=== PATIENT | male | born 1935 | race African-American/Black ===

== ENCOUNTER 2019-05-21 13:22 | Inpatient (IN) | payer OTHER, MEDICARE ==
[~2019-05-21] VITALS: Ht 175.3 cm; Wt 56.7 kg
[2019-05-21] MEDS ORDERED: ONDANSETRON HCL 4MG/2ML INJ IV STA (13:54)
[2019-05-21] MEDS ORDERED: FAMOTIDINE 20MG/2ML VIAL IV STA (13:54)
[2019-05-21] MEDS ORDERED: MAGNESIUM/ALUMINUM HYDROXIDE/SIMETHICONE 30ML UDC PO STA (13:54)
[2019-05-21 14:14] LABS: BASOPHILS % 0.1 % (0.0-2.0); HEMATOCRIT. 28.8 % (42.0-52.0); LYMPHOCYTES % 8.3 % (20.0-50.0); MEAN CORPUSCULAR HEMOGLOBIN 31.2 pg (28.0-32.0); MEAN CORPUSCULAR VOLUME 89.5 fL (80.0-94.0); MEAN PLATELET VOLUME 7.7 fl (7.4-10.4); MONOCYTES % 4.8 % (2.0-8.0); NEUTROPHILS % 86.8 % (40.0-76.0); PLATELET 321 x1000/uL (130-400); RED BLOOD CELL COUNT 3.21 mill/uL (4.7-6.1)
[2019-05-21 14:16] LABS: CHLORIDE 103 mEq/L (98-107)
[2019-05-21] MEDS ORDERED: KETOROLAC 15MG/ML VIAL IV ONE (15:30)
[2019-05-21] MEDS ORDERED: ACETAMINOPHEN 325MG TABLET PO ONE (15:30)
[2019-05-21] MEDS ORDERED: IOHEXOL-300 100 ML BOTTLE ONE (16:05)
[2019-05-21] MEDS ORDERED: CEFTRIAXONE 1 G PREMIX 50 ML IV ONE (17:30)
[2019-05-21] MEDS ORDERED: MORPHINE SULFATE 2 MG/ML CPJ (NOT FOR IM USE) IV ONE (17:30)
[2019-05-21] MEDS ORDERED: METRONIDAZOLE 500 MG PREMIX 100 ML IV ONE (17:30)
[2019-05-21 20:00] VITALS: BP_SYST 117; BP_SYST 149; BP_DIAS 53; BP_DIAS 60
[2019-05-21 20:23] LABS: CLARITY URINE CLEAR (CLEAR); COLOR URINE YELLOW (YELLOW); KETONES URINE NEGATIVE (NEGATIVE); LEUKOCYTE ESTERASE URINE TRACE (NEGATIVE); NITRITE URINE NEGATIVE (NEGATIVE); OCCULT BLOOD URINE 2+ (NEGATIVE); PROTEIN URINE 2+ (NEGATIVE); SPECIFIC GRAVITY URINE 1.064 (1.005-1.030); UROBILINOGEN URINE 0.2 E.U./dL (0.2-1.0)
[2019-05-21] MEDS ORDERED: ONDANSETRON HCL 4MG/2ML INJ IV PRN (23:00)
[2019-05-21] MEDS ORDERED: HYDROMORPHONE HCL/PF 2MG/ML CPJ IM PRN (23:15)
[2019-05-21] MEDS: DEXT 5%/0.45% NACL 1000ML 1,000 ML IV SCH (23:59)
[2019-05-22] VITALS: BP 160/63
[2019-05-22] MEDS ORDERED: PIPERACILLIN/TAZOBACTAM 3.375 G/VIAL IV SCH
[2019-05-22] MEDS: PIPERACILLIN/TAZOBACTAM 3.375 G in DEXT 5% WATER 100 ML IV SCH ×4 (00:05→17:03)
[2019-05-22] MEDS ORDERED: DEXTROSE 50% WATER 50ML SYRINGE IV PRN (01:15)
[2019-05-22 04:00] VITALS: BP 162/79
[2019-05-22 06:06] LABS: CHLORIDE 103 mEq/L (98-107)
[2019-05-22 06:17] LABS: BASOPHILS % 0.1 % (0.0-2.0); HEMATOCRIT. 30.6 % (42.0-52.0); HEMOGLOBIN. 10.5 g/dL (14.0-18.0); LYMPHOCYTES % 8.2 % (20.0-50.0); MEAN CORPUSCULAR HEMOGLOBIN 30.7 pg (28.0-32.0); MEAN CORPUSCULAR VOLUME 89.5 fL (80.0-94.0); MEAN PLATELET VOLUME 7.2 fl (7.4-10.4); MONOCYTES % 7.9 % (2.0-8.0); NEUTROPHILS % 83.8 % (40.0-76.0); PLATELET 272 x1000/uL (130-400); RED BLOOD CELL COUNT 3.41 mill/uL (4.7-6.1); RED CELL DISTRIBUTION WIDTH 13.8 % (11.6-14.6)
[2019-05-22] MEDS: BLOOD SUGAR DIAGNOSTIC STRIP TEST SCH ×4 (06:31→21:29)
[2019-05-22] MEDS: INSULIN LISPRO 100 UNITS/ML SUBCUT SCH ×3 (07:50→21:00)
[2019-05-22 08:00] VITALS: BP 147/65
[2019-05-22] MEDS: DEXT 5%/0.45% NACL 1000ML 1,000 ML IV SCH (08:56)
[2019-05-22] MEDS: HEPARIN 5000 UNITS/ML VIAL SUBCUT SCH ×2 (08:56→21:13)
[2019-05-22] MEDS ORDERED: FAMOTIDINE 20MG/2ML VIAL IV SCH (09:00)
[2019-05-22] MEDS: FAMOTIDINE 20MG/2ML VIAL IV SCH (09:25)
[2019-05-22 12:00] VITALS: BP 146/62
[2019-05-22] MEDS: HYDROMORPHONE HCL/PF 2MG/ML CPJ IV PRN (14:11)
[2019-05-22] MEDS: SODIUM CHLORIDE 0.9% 1,000 ML IV SCH (14:30)
[2019-05-22 16:00] VITALS: BP 122/58
[2019-05-22] MEDS: METRONIDAZOLE 500 MG PREMIX 100 ML IV SCH (16:00)
[2019-05-22 20:00] VITALS: BP 109/51
[2019-05-23] VITALS: BP 142/62
[2019-05-23] MEDS: METRONIDAZOLE 500 MG PREMIX 100 ML IV SCH ×3 (01:05→15:38)
[2019-05-23] MEDS: PIPERACILLIN/TAZOBACTAM 3.375 G in DEXT 5% WATER 100 ML IV SCH ×4 (01:05→17:43)
[2019-05-23] MEDS: SODIUM CHLORIDE 0.9% 1,000 ML IV SCH ×2 (01:05→11:03)
[2019-05-23] MEDS: HYDROMORPHONE HCL/PF 2MG/ML CPJ IV PRN ×2 (02:47→08:18)
[2019-05-23 04:00] VITALS: BP 124/64
[2019-05-23 06:57] LABS: CHLORIDE 105 mEq/L (98-107)
[2019-05-23 07:05] LABS: PHOSPHORUS 2.6 mg/dL (2.5-4.9)
[2019-05-23 07:13] LABS: BASOPHILS % 0.1 % (0.0-2.0); EOSINOPHILS % 0.1 % (0.0-5.0); HEMATOCRIT. 31.2 % (42.0-52.0); HEMOGLOBIN. 10.8 g/dL (14.0-18.0); LYMPHOCYTES % 24.7 % (20.0-50.0); MEAN CORPUSCULAR HEMOGLOBIN 31.1 pg (28.0-32.0); MEAN CORPUSCULAR VOLUME 90.1 fL (80.0-94.0); MEAN PLATELET VOLUME 7.3 fl (7.4-10.4); MONOCYTES % 6.3 % (2.0-8.0); NEUTROPHILS % 68.8 % (40.0-76.0); PLATELET 250 x1000/uL (130-400); RED BLOOD CELL COUNT 3.46 mill/uL (4.7-6.1); RED CELL DISTRIBUTION WIDTH 13.6 % (11.6-14.6)
[2019-05-23] MEDS: BLOOD SUGAR DIAGNOSTIC STRIP TEST SCH ×4 (07:26→21:07)
[2019-05-23] MEDS: INSULIN LISPRO 100 UNITS/ML SUBCUT SCH ×4 (07:50→21:00)
[2019-05-23 08:00] VITALS: BP 180/75
[2019-05-23] MEDS ORDERED: CLONIDINE 0.1MG TABLET PO PRN (08:00)
[2019-05-23] MEDS: HEPARIN 5000 UNITS/ML VIAL SUBCUT SCH ×2 (08:13→21:09)
[2019-05-23] MEDS: FAMOTIDINE 20MG/2ML VIAL IV SCH (08:13)
[2019-05-23 12:00] VITALS: BP 172/77
[2019-05-23 16:00] VITALS: BP 164/84
[2019-05-23 20:00] VITALS: BP 134/78
[2019-05-24] VITALS: BP 104/62
[2019-05-24] MEDS: METRONIDAZOLE 500 MG PREMIX 100 ML IV SCH ×4 (00:10→23:22)
[2019-05-24] MEDS: SODIUM CHLORIDE 0.9% 1,000 ML IV SCH ×3 (00:10→20:00)
[2019-05-24] MEDS: HYDROMORPHONE HCL/PF 2MG/ML CPJ IV PRN ×2 (00:48→09:03)
[2019-05-24] MEDS: PIPERACILLIN/TAZOBACTAM 3.375 G in DEXT 5% WATER 100 ML IV SCH ×4 (01:24→20:02)
[2019-05-24] MEDS: BLOOD SUGAR DIAGNOSTIC STRIP TEST SCH ×4 (06:02→21:33)
[2019-05-24] MEDS: INSULIN LISPRO 100 UNITS/ML SUBCUT SCH ×4 (06:07→21:44)
[2019-05-24 08:00] VITALS: BP 100/63
[2019-05-24] MEDS: HEPARIN 5000 UNITS/ML VIAL SUBCUT SCH ×2 (09:02→21:27)
[2019-05-24] MEDS: FAMOTIDINE 20MG/2ML VIAL IV SCH (09:02)
[2019-05-24 12:00] VITALS: BP 118/49
[2019-05-24 13:47] LABS: BASOPHILS % 0.2 % (0.0-2.0); EOSINOPHILS % 0.4 % (0.0-5.0); HEMATOCRIT. 29.2 % (42.0-52.0); HEMOGLOBIN. 9.8 g/dL (14.0-18.0); LYMPHOCYTES % 21.5 % (20.0-50.0); MEAN CORPUSCULAR HEMOGLOBIN 31.1 pg (28.0-32.0); MEAN CORPUSCULAR VOLUME 92.2 fL (80.0-94.0); MEAN PLATELET VOLUME 7.1 fl (7.4-10.4); MONOCYTES % 8.6 % (2.0-8.0); NEUTROPHILS % 69.3 % (40.0-76.0); PLATELET 252 x1000/uL (130-400); RED BLOOD CELL COUNT 3.17 mill/uL (4.7-6.1); RED CELL DISTRIBUTION WIDTH 14.1 % (11.6-14.6)
[2019-05-24 13:57] LABS: CHLORIDE 107 mEq/L (98-107)
[2019-05-24 16:30] VITALS: BP 138/74
[2019-05-24] MEDS ORDERED: ACETAMINOPHEN 650MG SUPP PR PRN (16:45)
[2019-05-24] MEDS ORDERED: POTASSIUM CHLORIDE INJ 40 MEQ in DEXT 5% WATER 500 ML IV NR (18:00)
[2019-05-24 18:07] LABS: BG BASE EXCESS -3.3 mmol/L (-2.0-2.0); BG CARBOXYHEMOGLOBIN 0.3 % (0.5-1.5); BG DEOXYHEMOGLOBIN 2.8 % (0.0-5.0); BG FRACTION INSPIRED OXYGEN 21; BG HCO3 ACT 20.5 mmol/L (22.0-26.0); BG METHEMOGLOBIN 0.7 % (0.0-1.5); BG OXYGEN SATURATION 97.2 % (92.0-98.5); BG OXYHEMOGLOBIN 96.2 % (94.0-97.0); BG PCO2 32.3 mmHg (35.0-45.0); BG PO2 94.8 mmHg (75.0-100.0); BG SAMPLE SITE RIGHT RADIAL; BG TOTAL HEMOGLOBIN 10.3 g/dL (12.0-18.0); BG VENT MODE ROOM AIR
[2019-05-24 20:00] VITALS: BP 143/70
[2019-05-24] MEDS: VANCOMYCIN HCL 1000 MG/20 ML ORAL PO SCH ×2 (21:25→23:26)
[2019-05-25] VITALS: BP 144/66
[2019-05-25] MEDS: PIPERACILLIN/TAZOBACTAM 3.375 G in DEXT 5% WATER 100 ML IV SCH ×2 (00:54→05:49)
[2019-05-25] MEDS: HYDROMORPHONE HCL/PF 2MG/ML CPJ IV PRN ×2 (03:21→15:18)
[2019-05-25 04:00] VITALS: BP 166/81
[2019-05-25] MEDS: VANCOMYCIN HCL 1000 MG/20 ML ORAL PO SCH ×2 (06:06→18:50)
[2019-05-25] MEDS: BLOOD SUGAR DIAGNOSTIC STRIP TEST SCH ×4 (07:48→21:00)
[2019-05-25] MEDS: INSULIN LISPRO 100 UNITS/ML SUBCUT SCH ×4 (07:50→22:21)
[2019-05-25 08:00] VITALS: BP 148/58
[2019-05-25] MEDS: HEPARIN 5000 UNITS/ML VIAL SUBCUT SCH (10:46)
[2019-05-25] MEDS: FAMOTIDINE 20MG/2ML VIAL IV SCH (10:46)
[2019-05-25] MEDS: METRONIDAZOLE 500 MG PREMIX 100 ML IV SCH (10:46)
[2019-05-25 12:00] VITALS: BP 139/59
[2019-05-25] MEDS ORDERED: FAMO-135 PO (12:47)
[2019-05-25] MEDS ORDERED: METR500T PO (12:47)
[2019-05-25] MEDS ORDERED: VANC125C11 MT (12:47)
[2019-05-25] MEDS: METRONIDAZOLE 500MG TABLET PO SCH ×2 (13:28→22:10)
[2019-05-25 15:49] LABS: BASOPHILS % 0.2 % (0.0-2.0); EOSINOPHILS % 0.6 % (0.0-5.0); HEMATOCRIT. 31.3 % (42.0-52.0); HEMOGLOBIN. 10.6 g/dL (14.0-18.0); LYMPHOCYTES % 24.7 % (20.0-50.0); MEAN CORPUSCULAR HEMOGLOBIN 30.8 pg (28.0-32.0); MEAN CORPUSCULAR VOLUME 91.1 fL (80.0-94.0); MEAN PLATELET VOLUME 6.8 fl (7.4-10.4); MONOCYTES % 9.3 % (2.0-8.0); NEUTROPHILS % 65.2 % (40.0-76.0); PLATELET 239 x1000/uL (130-400); RED BLOOD CELL COUNT 3.44 mill/uL (4.7-6.1); RED CELL DISTRIBUTION WIDTH 13.9 % (11.6-14.6)
[2019-05-25 15:58] LABS: CHLORIDE 109 mEq/L (98-107)
[2019-05-25 16:00] VITALS: BP 129/60
[2019-05-25] MEDS ORDERED: POTASSIUM CHLORIDE 20MEQ TABLET SR PO NR (19:30)
[2019-05-25 20:00] VITALS: BP 160/77
[2019-05-25] MEDS ORDERED: POTASSIUM CHLORIDE INJ 40 MEQ in DEXT 5% WATER 250 ML IV NR (21:00)
[2019-05-26] VITALS: BP 133/73
[2019-05-26] MEDS: VANCOMYCIN HCL 1000 MG/20 ML ORAL PO SCH ×5 (00:55→23:01)
[2019-05-26] MEDS: ACETAMINOPHEN 325MG TABLET PO PRN (02:53)
[2019-05-26 04:00] VITALS: BP 150/69
[2019-05-26] MEDS: METRONIDAZOLE 500MG TABLET PO SCH ×3 (05:59→22:27)
[2019-05-26] MEDS: BLOOD SUGAR DIAGNOSTIC STRIP TEST SCH ×4 (06:15→21:00)
[2019-05-26] MEDS: INSULIN LISPRO 100 UNITS/ML SUBCUT SCH ×4 (06:15→21:00)
[2019-05-26 07:22] LABS: HEMATOCRIT 32.1 % (42.0-52.0); HEMOGLOBIN 11.1 g/dL (14.0-18.0); MEAN CORPUSCULAR HEMOGLOBIN 31.2 pg (28.0-32.0); PLATELET 232 x1000/uL (130-400); RED BLOOD CELL COUNT 3.56 mill/uL (4.7-6.1); RED CELL DISTRIBUTION WIDTH 14.2 % (11.6-14.6)
[2019-05-26 07:32] LABS: CHLORIDE 112 mEq/L (98-107)
[2019-05-26 08:00] VITALS: BP 170/77
[2019-05-26] MEDS: SODIUM CHLORIDE 0.9% 1,000 ML IV SCH ×2 (08:30→18:30)
[2019-05-26] MEDS: FAMOTIDINE 20MG/2ML VIAL IV SCH (09:09)
[2019-05-26] MEDS: HYDROMORPHONE HCL/PF 2MG/ML CPJ IV PRN ×3 (09:09→22:59)
[2019-05-26 12:00] VITALS: BP 159/88
[2019-05-26 16:00] VITALS: BP 141/70
[2019-05-26 20:00] VITALS: BP 138/70
[2019-05-27] VITALS: BP 137/68
[2019-05-27] MEDS ORDERED: HYDROMORPHONE HCL/PF 2MG/ML CPJ IV PRN (03:00)
[2019-05-27 04:00] VITALS: BP 118/70
[2019-05-27] MEDS: METRONIDAZOLE 500MG TABLET PO SCH ×3 (05:28→21:04)
[2019-05-27] MEDS: VANCOMYCIN HCL 1000 MG/20 ML ORAL PO SCH ×4 (05:28→23:24)
[2019-05-27] MEDS: INSULIN LISPRO 100 UNITS/ML SUBCUT SCH ×4 (06:35→20:47)
[2019-05-27] MEDS: BLOOD SUGAR DIAGNOSTIC STRIP TEST SCH ×4 (06:35→21:02)
[2019-05-27 08:00] VITALS: BP 154/82
[2019-05-27] MEDS: FAMOTIDINE 20MG/2ML VIAL IV SCH (08:42)
[2019-05-27] MEDS: ACETAMINOPHEN 325MG TABLET PO PRN ×2 (11:35→20:48)
[2019-05-27 12:00] VITALS: BP 142/76
[2019-05-27] MEDS: SODIUM CHLORIDE 0.9% 1,000 ML IV SCH (12:46)
[2019-05-27 16:00] VITALS: BP 142/76
[2019-05-27 20:00] VITALS: BP 153/64
[2019-05-28] VITALS: BP 145/56
[2019-05-28 04:00] VITALS: BP_SYST 109; BP_SYST 119; BP_DIAS 61; BP_DIAS 69
[2019-05-28] MEDS: METRONIDAZOLE 500MG TABLET PO SCH ×2 (05:30→14:24)
[2019-05-28] MEDS: VANCOMYCIN HCL 1000 MG/20 ML ORAL PO SCH ×2 (05:30→11:27)
[2019-05-28] MEDS: BLOOD SUGAR DIAGNOSTIC STRIP TEST SCH ×2 (07:20→11:41)
[2019-05-28] MEDS: INSULIN LISPRO 100 UNITS/ML SUBCUT SCH ×2 (07:50→11:41)
[2019-05-28 08:00] VITALS: BP 138/66
[2019-05-28] MEDS: FAMOTIDINE 20MG/2ML VIAL IV SCH (08:29)
[2019-05-28 12:00] VITALS: BP 142/67
[2019-05-28 15:34] VITALS: BP 142/67
[2019-05-28] MEDS ORDERED: HYDROCODONE/ACETAMINOPHEN 5/325MG TABLET PO PRN (17:11)
[2019-05-28] MEDS ORDERED: MAGNESIUM/ALUMINUM HYDROXIDE/SIMETHICONE 30ML UDC PO PRN (17:15)
[2019-05-28] MEDS ORDERED: CLONIDINE 0.1MG TABLET PO PRN (17:15)
[2019-05-28] MEDS ORDERED: BISACODYL 10MG SUPP PR PRN (17:15)
[2019-05-28] MEDS ORDERED: IPRATROPIUM/ALBUTEROL 0.5-3(2.5)MG/3ML NEB HHN PRN (17:15)
== END 2019-05-28 17:18 | DRG 372 ==
LOC: ER 13:22 → 6EST 18:32 → ENRESERV 19:30
PROVIDERS: ADMIT Internal Medicine; ATTEND Internal Medicine
DX: A04.72 Enterocolitis due to Clostridium difficile, not specified as recurrent (principal); K57.32 Diverticulitis of large intestine without perforation or abscess without bleeding; E11.9 Type 2 diabetes mellitus without complications; I10 Essential (primary) hypertension; K83.8 Other specified diseases of biliary tract; E87.6 Hypokalemia; R19.00 Intra-abdominal and pelvic swelling, mass and lump, unspecified site; Z90.49 Acquired absence of other specified parts of digestive tract; Z85.00 Personal history of malignant neoplasm of unspecified digestive organ; Z85.89 Personal history of malignant neoplasm of other organs and systems
CPT/HCPCS: 36415; 36600; 71045; 74177; 74181; 76700; 80053; 81003; 82105; 82375; 82378; 82805; 82962; 83036; 83735; 84100; 85025; 85027; 86301; 87015; 87045; 87427; 87449; 87493; 93970; 97110; 97116; 97162; 97530; 99285; J0696; J1170; J1644; J1815; J1885; J2270; J2405; J2543; J3370; J3480; J3490; J7030; J7060; Q9967